=== PATIENT | female | born 1970 ===

== ENCOUNTER 2023-06-06 07:19 | Inpatient (IN) | payer SELFPAY ==
[~2023-06-06] VITALS: Ht 162.6 cm; Wt 58.8 kg
[2023-06-06] VITALS (13 sets, daily range): BP systolic 95–131; BP diastolic 49–78; PULSE 68–86; TEMP 97.8–99.3
[~2023-06-06 07:19] MED LIST: Famotidine 20 MG TAB PO SCH; LR 1,000 ML IV SCH; Metoclopramide 10 MG TAB PO SCH; Scopolamine 1 MG Delivered 3-Day PATCH TD SCH
[2023-06-06 08:26] LABS: HEMATOCRIT 42.5 % (37.0-47.0); HEMOGLOBIN 14.4 g/dl (12.5-16.0)
[2023-06-06] MEDS ORDERED: NATURAL IRON65 MG PO (08:32)
--- NOTE | 2023-06-06 08:57 | NUR ---
[id number] PATIENT AMBULATORY TO BAY 3 WITH A STEADY GAIT, BREATHING EVEN AND UNLABORED. PATIENT IS ALERT AND ORIENTED, ACCOMPANIED BY HER DAUGHTER, DAVID. VIDEO PRODUCTION COORDINATOR # [id number], ESTHER, PROVIDED TRANSLATION FOR PATIENT TO REVIEW AND SIGN A DECLINATION OF [employer] WORKER SERVICES, REQUESTING HER DAUGHTER, DAVID BE HER MANAGER PAID TODAY. CONSENTS REVIEWED AND ANESTHESIA CONSENT SIGNED. WAITING FOR TO REVIEW OPERATIVE CONSENT WITH PATIENT. PATIENT DOES NOT WANT OVARIES REMOVED. IV ESTABLISHED, BLOOD SPECIMEN OBTAINED AND SENT TO LAB. LR INFUSING VIA DIAL A FLOW. CALL LIGHT IN REACH. WARM BLANKET PROVIDED.
[2023-06-06] MEDS ORDERED: Vecuronium 10 MG VIAL IV ONE (08:58)
[2023-06-06] MEDS ORDERED: fentaNYL 50 MCG/ML 5 ML VIAL ONE (08:58)
[2023-06-06] MEDS ORDERED: Succinylcholine PF 200 MG/10 ML SYRINGE IV ONE (08:58)
[2023-06-06] MEDS ORDERED: Lidocaine PF 2% (20 MG/ML) 5 ML VIAL ONE (08:59)
[2023-06-06] MEDS ORDERED: NS 10 ML IV ONE ×2 (08:59→10:42)
[2023-06-06] MEDS ORDERED: dexAMETHasone 10 MG/ML VIAL ONE ×2 (09:32→10:42)
[2023-06-06] MEDS ORDERED: fentaNYL 50 MCG/ML 2 ML VIAL ONE (09:33)
[2023-06-06] MEDS ORDERED: HYDROmorphone 2 MG/1 ML VIAL ONE (09:53)
[2023-06-06] MEDS ORDERED: Tranexamic Acid 1,000 MG/10 ML VIAL ONE (10:03)
[2023-06-06] MEDS ORDERED: Ketorolac 30 MG/ML VIAL ONE (10:34)
[2023-06-06] MEDS ORDERED: Ondansetron 4 MG/2 ML VIAL ONE (10:34)
[2023-06-06] MEDS ORDERED: oxyCODONE 5 MG TAB PO PRN (11:15)
[2023-06-06] MEDS ORDERED: LR 1,000 ML IV SCH (11:15)
[2023-06-06] MEDS ORDERED: Naloxone 0.4 MG/ML VIAL IV PRN (11:15)
[2023-06-06] MEDS ORDERED: Ondansetron 4 MG/2 ML VIAL IV PRN ×2 (11:15→11:30)
[2023-06-06] MEDS ORDERED: HYDROmorphone 2 MG/1 ML VIAL IV PRN ×2 (11:30)
[2023-06-06] MEDS ORDERED: fentaNYL 50 MCG/ML 2 ML VIAL IV PRN (11:30)
[2023-06-06] MEDS ORDERED: Acetaminophen 500 MG TAB PO SCH ×2 (11:30→20:00)
[2023-06-06] MEDS ORDERED: droPERidol 2.5 MG/ML 2 ML VIAL IV PRN (11:30)
[2023-06-06] MEDS ORDERED: fentaNYL 50 MCG/ML 2 ML VIAL IV ONE (11:40)
--- NOTE | 2023-06-06 13:00 | NUR ---
to room per bed from PACU, awake and alert but very sleepy, IV fluids infusing per dial-a-flow and rate set at 200ml/hr since BP 95/53, O2 on at 2L/NC and O2 sat 99%, abdominal binder on and opened and incision with airstrip dressing is CD&I, no vag bleeding noted, frazier cath patent draining clear yellow urine, daughter at bedside and assisting with communication
--- NOTE | 2023-06-06 13:30 | NUR ---
full assessment completed, see interventions for further info
--- NOTE | 2023-06-06 13:45 | NUR ---
Dr Flores notified regarding BP 98/49, P 72 and has approx 150ml urine out in frazier at this time,
--- NOTE | 2023-06-06 13:50 | NUR ---
medicated with roxicodone 5mg 1 tab for c/os pain
--- NOTE | 2023-06-06 14:45 | NUR ---
daughter communicates with this nurse that the patint's pain is in her back and she does have back problems, assisted her with turning onto her right side for comfort, also asking about something to eat, provided applesauce per her request,
--- NOTE | 2023-06-06 16:00 | NUR ---
continues to rest on right side, had applesauce and tolerated well
--- NOTE | 2023-06-06 16:49 | NUR ---
continues to rest on right side, will order chicken noodle soup per her request, continues to c/o some back pain and diana incision pain, dressing CD&I, has scant amount bloody drainage on chux, encouraged to C&DB
[2023-06-06] MEDS ORDERED: Ibuprofen 800 MG TAB PO SCH (17:30)
--- NOTE | 2023-06-06 17:53 | NUR ---
tanner dykes soup and daughter is assisting her, continues to c/o pain, offered to help get her out of bed and into recliner, she declines this at this time but head of bed elevated more per patient's request, medicated with scheduled motrin
--- NOTE | 2023-06-06 19:00 | NUR ---
bedside perez report given to NENITA Cervantes
--- NOTE | 2023-06-06 20:00 | NUR ---
Initial shift assessment done- alert/oriented x3, mainly nepalese speaking, daughter in room helping out-- pt states abd pain 09/13,, scheduled tylenol given as ordered, instructed on C&DB, did demonstrate back-- importance of this,, also IS, at bedside using when reminded. Abd dressing dry and intact-abd binder on. Taking liquids without nausea, eating some jello /soup. Iv fluids of LR at 125cc/hr, VSS. SCd,s on, Moise to DD with clear yellow urine.
[2023-06-06] MEDS ORDERED: Docusate Sodium 100 MG CAP PO SCH (21:00)
--- NOTE | 2023-06-06 22:09 | NUR ---
PT NOT IN RM.
[2023-06-07 01:07] VITALS: BP_SYST 107
[2023-06-07 03:30] VITALS: BP 100/64; PULSE 93; TEMP 98.3
--- NOTE | 2023-06-07 04:00 | NUR ---
States is feeling better now- pain to abd /10 now,, states the last meds given at 0250 really made a difference {roxicodone/tylenol combination}. Dressing dry and intact- binder on. Up out of bed with assistance, took a short walk in [place], steady on feetJose Maria with 1400cc out this shift, Taking po well-no nausea, did get Milicon chew tabs once this shift for gas pains-- states were effective- Using IS , up to [phone]
[2023-06-07 04:10] VITALS: BP_SYST 100
[2023-06-07 07:14] VITALS: BP 96/59; PULSE 91; TEMP 98.5
[2023-06-07 08:00] VITALS: BP_SYST 102
--- NOTE | 2023-06-07 08:00 | NUR ---
PT LAYING IN BED UPON ENTERING, DAUGHTER AT BEDSIDE. ASSESSMENT DONE, MEDS GIVEN PER ORDER. PT DENIES PAIN AT THIS TIME. LEFT AND RIGHT FOREARM INT PATENT. PCT NOTIFIED THIS NURSE OF MORNING BP 96/59, RECHECK BY THIS NURSE WAS 102/66. ABDOMEN BINDER IN PLACE, AIRSTRIP DRESSING CLEAN DRY AND INTACT. BED IN LOWEST POSITION, CALL LIGHT IN REACH.
[2023-06-07 08:09] VITALS: BP 102/66
--- NOTE | 2023-06-07 09:46 | NUR ---
LEFT AND RIGHT FOREARM INTS DISCONTINUED. 8 MLS OF WATER REMOVED FROM CATHETER BALLOON AND [place] DISCONTINUED, PT TOLERATED WELL. DRESSING REMOVED FROM ABDOMINAL MIDLINE INCISION. NO DRAINAGE NOTED AND EDGES WELL APPROXIMATED. PT EDUCATED ON SHOWERING, SITE CARE AND RESTRICTIONS. PT AND DAUGHTER VERBALIZED UNDERSTANDING OF ALL DISCHARGE INSTRUCTIONS. BINDER IN PLACE. PT GIVEN PRN OXYCODONE PER REQUEST FOR LONG DRIVE HOME. DISCHARGE PAPERWORK NOT REFLECTING MEDS AND FOLLOW UP APPOINTMENTS. OB NOTIFIED THIS NURSE OF THIS AND PTS AWARE OF PRESCRIPTIONS SENT IN AND APPOINTMENTS. PT ESCORTED TO PERSONAL VEHICLE VIA WHEELCHIAR BY PCT.
[2023-06-09] MEDS ORDERED: NATURAL IRON65 MG PO (10:18)
[2023-06-09] MEDS ORDERED: TOPROL XL 25MG25 MG PO ×2 (10:18→11:02)
[2023-06-09] MEDS ORDERED: ROXICODONE 55 MG/TAB PO (10:18)
[2023-06-09] MEDS ORDERED: LEADER CLE17 GM/Dose PO (10:19)
[2023-06-09] MEDS ORDERED: SENNA-S 50 MG-81 TAB PO (10:19)
== END 2023-06-07 10:00 | disposition home or self-care (01) | DRG 743 ==
LOC: SDCO 07:19 → MEDICAL 11:19 → SDCO 13:00 → MEDICAL 13:01
PROVIDERS: Nurse Anesthetist, Certified Registered; ADMIT Obstetrics & Gynecology
PROC: 0UT90ZZ Resection of Uterus, Open Approach (ICD-10-PCS; principal; 2023-06-06 09:00)
PROC: 0UT50ZZ Resection of Right Fallopian Tube, Open Approach (ICD-10-PCS; 2023-06-06 09:00)
DX: D25.9 Leiomyoma of uterus, unspecified (principal); D50.0 Iron deficiency anemia secondary to blood loss (chronic)
CPT/HCPCS: A4314; A9284; J0665-JZ; J0690; J1100; J1170; J1885; J2405; J2704; J3010; J7120